=== PATIENT | female | born 1980 | race American Indian/Alaskan Native ===

== ENCOUNTER 2017-05-03 03:18 | Inpatient (IN) | payer OTHER ==
[2017-05-03 04:31] LABS: Basophils # (Auto) 0.1 K/mm3 (0.0-0.1); Basophils % (Auto) 0.6 % (0.0-1.8); Eosinophils # (Auto) 0.1 K/mm3 (0.0-0.4); Eosinophils % (Auto) 0.7 % (0.0-4.3); Hematocrit 37.8 % (30.3-42.9); Hemoglobin 13.2 gm/dl (10.1-14.3); Lymphocytes # (Auto) 3.2 K/mm3 (1.2-5.4); Lymphocytes % (Auto) 34.3 % (13.4-35.0); Mean Corpuscular HGB Conc 35 % (30-34); Mean Corpuscular Hemoglobin 31 pg (28-32); Mean Corpuscular Volume 88 fl (79-97); Monocytes # (Auto) 0.7 K/mm3 (0.0-0.8); Monocytes % (Auto) 7.1 % (0.0-7.3); Platelet Count 369 K/mm3 (140-440); Red Cell Distribution Width 13.8 % (13.2-15.2)
[2017-05-03 04:40] LABS: BUN/Creatinine Ratio 14; Blood Urea Nitrogen 11 mg/dL (7-17); Calcium 9.1 mg/dL (8.4-10.2); Hemolysis Index 17
--- NOTE | 2017-05-03 04:54 | XRay Report ---
FINAL REPORT EXAM: XR CHEST ROUTINE 2V HISTORY: Shortness of breath TECHNIQUE: PA and lateral chest radiographs PRIORS: None. FINDINGS: No mediastinal shift. Cardiac silhouette is not enlarged. No pneumothorax, effusion, or focal pulmonary opacity. No acute skeletal finding. IMPRESSION: No focal pulmonary opacity.
[2017-05-03] MEDS ORDERED: DUONEB *Not for PRN Use IH ONE (08:06)
--- NOTE | 2017-05-03 10:47 | Emergency Department Report ---
ED Shortness of Breath HPI - General Chief Complaint: Dyspnea/Respdistress Stated Complaint: YEMI Time Seen by Provider: 05/03/17 09:40 Source: patient Mode of arrival: Ambulatory Limitations: No Limitations - History of Present Illness Initial Comments: 36-year-old female past medical history obesity diabetes high cholesterol presents with complaint of episode of chest pain and upper back pain with some pleuritic shortness of breath last night. Patient states she was in bed she developed pain in her back and chest. Patient states that it bothered her to the point where she had to get out of bed and felt very short of breath. Denies fevers chills cough. States pain is moderate. Denies nausea or vomiting. Patient is speaking in full sentences awake alert and oriented 3 MD Complaint: shortness of breath -: During the night Severity: moderate Quality: aching Consistency: constant Improves With: nothing Worsens With: nothing Context: recent URI Associated Symptoms: chest pain Treatments Prior to Arrival: none, asprin - Related Data Home Oxygen Therapy: Yes Allergies Allergy/AdvReac Type Severity Reaction Status Date / Time No Known Allergies Allergy Unverified 05/03/17 03:48 ED Review of Systems ROS: Stated complaint: YEMI Other details as noted in HPI Constitutional: denies: chills, fever Eyes: denies: eye pain, eye discharge, vision change ENT: denies: ear pain, throat pain Respiratory: denies: cough, shortness of breath, wheezing Cardiovascular: chest pain. denies: palpitations Endocrine: no symptoms reported Gastrointestinal: denies: abdominal pain, nausea, diarrhea Genitourinary: denies: urgency, dysuria, discharge Musculoskeletal: denies: back pain, joint swelling, arthralgia Skin: denies: rash, lesions Neurological: denies: headache, weakness, paresthesias Psychiatric: denies: anxiety, depression Hematological/Lymphatic: denies: easy bleeding, easy bruising ED Past Medical Hx - Past Medical History Previous Medical History?: Yes Hx Diabetes: Yes Additional medical history: hyperlipidemia, PCOS - Surgical History Past Surgical History?: No - Social History Smoking Status: Current Every Day Smoker Substance Use Type: None ED Physical Exam - General Limitations: No Limitations General appearance: alert, in no apparent distress - Head Head exam: Present: atraumatic, normocephalic - Eye Eye exam: Present: normal appearance - ENT ENT exam: Present: mucous membranes moist - Neck Neck exam: Present: normal inspection - Respiratory Respiratory exam: Present: normal lung sounds bilaterally. Absent: respiratory distress - Cardiovascular Cardiovascular Exam: Present: regular rate, normal rhythm. Absent: systolic murmur, diastolic murmur, rubs, gallop - GI/Abdominal GI/Abdominal exam: Present: soft, normal bowel sounds - Extremities Exam Extremities exam: Present: normal inspection - Back Exam Back exam: Present: normal inspection - Neurological Exam Neurological exam: Present: alert, oriented X3, CN II-XII intact, normal gait - Psychiatric Psychiatric exam: Present: normal affect, normal mood - Skin Skin exam: Present: warm, dry, intact, normal color. Absent: rash ED Course Vital Signs 05/03/17 05/03/17 03:48 11:12 Temperature 98.5 F Pulse Rate 98 H 89 Respiratory 18 18 Rate Blood Pressure 132/90 Blood Pressure 101/62 [Left] O2 Sat by Pulse 99 97 Oximetry ED Medical Decision Making - Lab Data Result diagrams: 05/03/17 04:03 05/03/17 04:03 - Medical Decision Making A/P: Chest pain, substernal angina 1-case discussed with Dr. Campos, after review of clinical history and risk factors will admit patient for cardiac risk stratification and stress testing. Patient has not had stress testing in the past 2-EKG sinus 2, d-dimer negative, troponin negative 3. 3-162mg of aspirin, sublingual nitroglycerin, campus monitor 4- case discussed with hospitalist for admission Critical care attestation.: If time is entered above; I have spent that time in minutes in the direct care of this critically ill patient, excluding procedure time. ED Disposition Clinical Impression: Chest pain Qualifiers: Chest pain type: other chest pain Qualified Code(s): R07.89 - Other chest pain Disposition: 09 OP ADMIT IP TO THIS HOSP Is pt being admited?: Yes Does the pt Need Aspirin: No Condition: Stable Instructions: Chest Pain (ED) Referrals: JULIENNE KUMARI MD [Primary Care Provider] - 3-5 Days Time of Disposition: 13:41
[2017-05-03] MEDS ORDERED: BABY ASPIRIN PO ONE (13:39)
[2017-05-03] MEDS ORDERED: NACL 0.9% 1000 ML 1,000 ML IV ONE (13:43)
[2017-05-03] MEDS ORDERED: NITROSTAT SL ONE (13:43)
--- NOTE | 2017-05-03 17:20 | History and Physical Report ---
History of Present Illness Date of examination: 05/03/17 Date of admission: 05/03/17 13:42 Chief complaint: CC ; Left sided chest pain for 2 days. History of present illness: History of Present Illness Initial Comments: 36-year-old female past medical history of obesity, diabetes, HLD presents with complaint of chest pain and upper back pain with some shortness of breath last night. Patient states she was in bed and she developed pain in her back and chest. Patient states that it bothered her to the point where she had to get out of bed and felt very short of breath. Denies fevers chills cough. States pain is moderate. Denies nausea or vomiting. Patient is speaking in full sentences awake alert and oriented 3 No exacerbating or relieving factors Past Medical History Previous Medical History?: Yes Hx Diabetes: Yes Additional medical history: hyperlipidemia, PCOS Surgical History Past Surgical History?: No Social History Smoking Status: Current Every Day Smoker Substance Use Type: None Family Hx Htn Review of Systems ROS: Stated complaint: YEMI Other details as noted in HPI Constitutional: denies: chills, fever Eyes: denies: eye pain, eye discharge, vision change ENT: denies: ear pain, throat pain Respiratory: denies: cough, shortness of breath, wheezing Cardiovascular: chest pain. denies: palpitations Endocrine: no symptoms reported Gastrointestinal: denies: abdominal pain, nausea, diarrhea Genitourinary: denies: urgency, dysuria, discharge Musculoskeletal: denies: back pain, joint swelling, arthralgia Skin: denies: rash, lesions Neurological: denies: headache, weakness, paresthesias Psychiatric: denies: anxiety, depression Hematological/Lymphatic: denies: easy bleeding, easy bruising Medications and Allergies Allergies Allergy/AdvReac Type Severity Reaction Status Date / Time No Known Allergies Allergy Unverified 05/03/17 03:48 Home Medications Medication Instructions Recorded Confirmed Last Taken Type Atorvastatin 40 mg PO QPM 05/03/17 05/03/17 Unknown History Glimepiride 4 mg PO BID 05/03/17 05/03/17 Unknown History metFORMIN [Glucophage] 1,000 mg PO BID 05/03/17 05/03/17 Unknown History Exam - Constitutional Vitals: Temp Pulse Resp BP Pulse Ox 98.5 F 80 20 111/74 96 05/03/17 03:48 05/03/17 15:42 05/03/17 16:06 05/03/17 15:42 05/03/17 16:06 General appearance: Present: no acute distress, well-nourished - EENT Eyes: Present: PERRL ENT: hearing intact, clear oral mucosa - Neck Neck: Present: supple, normal ROM - Respiratory Respiratory effort: normal Respiratory: bilateral: CTA - Cardiovascular Heart rate: 76 Rhythm: regular Heart Sounds: Present: S1 & S2. Absent: rub, click - Extremities Extremities: no ischemia, pulses intact, pulses symmetrical, No edema Peripheral Pulses: within normal limits - Abdominal General gastrointestinal: Present: soft, non-tender, non-distended, normal bowel sounds Female genitourinary: Present: normal - Rectal Rectal Exam: deferred - Integumentary Integumentary: Present: clear, warm, dry - Musculoskeletal Musculoskeletal: gait normal, strength equal bilaterally - Psychiatric Psychiatric: appropriate mood/affect, intact judgment & insight - Neurologic Neurologic: CNII-XII intact, moves all extremities - Allied Health Allied health notes reviewed: nursing Results - Labs CBC & Chem 7: 05/03/17 04:03 05/03/17 04:03 Labs: Laboratory Last Values WBC 9.3 K/mm3 (4.5-11.0) 05/03/17 04:03 RBC 4.30 M/mm3 (3.65-5.03) 05/03/17 04:03 Hgb 13.2 gm/dl (10.1-14.3) 05/03/17 04:03 Hct 37.8 % (30.3-42.9) 05/03/17 04:03 MCV 88 fl (79-97) 05/03/17 04:03 MCH 31 pg (28-32) 05/03/17 04:03 MCHC 35 % (30-34) H 05/03/17 04:03 RDW 13.8 % (13.2-15.2) 05/03/17 04:03 Plt Count 369 K/mm3 (140-440) 05/03/17 04:03 Lymph % (Auto) 34.3 % (13.4-35.0) 05/03/17 04:03 [place] % (Auto) 7.1 % (0.0-7.3) 05/03/17 04:03 Eos % (Auto) 0.7 % (0.0-4.3) 05/03/17 04:03 Baso % (Auto) 0.6 % (0.0-1.8) 05/03/17 04:03 Lymph # 3.2 K/mm3 (1.2-5.4) 05/03/17 04:03 [place] # 0.7 K/mm3 (0.0-0.8) 05/03/17 04:03 Eos # 0.1 K/mm3 (0.0-0.4) 05/03/17 04:03 Baso # 0.1 K/mm3 (0.0-0.1) 05/03/17 04:03 Seg Neutrophils % 57.3 % (40.0-70.0) 05/03/17 04:03 Seg Neutrophils # 5.3 K/mm3 (1.8-7.7) 05/03/17 04:03 D-Dimer 154.25 ng/mlDDU (0-234) 05/03/17 08:30 Sodium 141 mmol/L (137-145) 05/03/17 04:03 Potassium 4.3 mmol/L (3.6-5.0) 05/03/17 04:03 Chloride 101.2 mmol/L (98-107) 05/03/17 04:03 Carbon Dioxide 25 mmol/L (22-30) 05/03/17 04:03 Anion Gap 19 mmol/L 05/03/17 04:03 BUN 11 mg/dL (7-17) 05/03/17 04:03 Creatinine 0.8 mg/dL (0.7-1.2) 05/03/17 04:03 Estimated GFR > 60 ml/min 05/03/17 04:03 BUN/Creatinine Ratio 14 % 05/03/17 04:03 Glucose 147 mg/dL (65-100) H 05/03/17 04:03 Calcium 9.1 mg/dL (8.4-10.2) 05/03/17 04:03 Troponin T < 0.010 ng/mL (0.00-0.029) 05/03/17 11:06 - Imaging and Cardiology EKG: report reviewed (sinus rhythm 80/min Non specific T abnormalities ant leads ) Chest x-ray: report reviewed Assessment and Plan Advance Directives: Yes (Full code) VTE prophylaxis?: Chemical Plan of care discussed with patient/family: Yes - Patient Problems (1) Chest pain Current Visit: Yes Status: Acute Qualifiers: Chest pain type: unspecified Qualified Code(s): R07.9 - Chest pain, unspecified Plan to address problem: Serial cardiac enzymes and lexiscan in AM.Diff diagnosis of costochondritis and Gerd to be considered.No chest wall tenderness. (2) HLD (hyperlipidemia) Current Visit: Yes Status: Chronic Qualifiers: Hyperlipidemia type: mixed hyperlipidemia Qualified Code(s): E78.2 - Mixed hyperlipidemia Plan to address problem: Cont statins (3) T2DM (type 2 diabetes mellitus) Current Visit: Yes Status: Chronic Qualifiers: Diabetes mellitus complication status: without complication Diabetes mellitus manager long term care insulin use: without [facility] use Qualified Code(s): E11.9 - Type 2 diabetes mellitus without complications Plan to address problem: Cont Glimepride and Metformin Check A1c. Moderate dose s/s coverage (4) PCOS (polycystic ovarian syndrome) Current Visit: Yes Status: Chronic Plan to address problem: Cont Metformin (5) Malnutrition compromising bodily function Current Visit: Yes Status: Chronic Plan to address problem: Sec to Morbid obeesity-counselled (6) DVT prophylaxis Current Visit: Yes Status: Acute Plan to address problem: on Lovenox
[2017-05-03] MEDS ORDERED: TYLENOL PO PRN (17:50)
[2017-05-03] MEDS ORDERED: MORPHINE IV PRN ×2 (17:50)
[2017-05-03] MEDS ORDERED: PERCOCET 5/325 PO PRN (17:50)
[2017-05-03] MEDS ORDERED: AMBIEN PO PRN (17:50)
[2017-05-03] MEDS ORDERED: MILK OF MAGNESIA PO PRN (17:50)
[2017-05-03] MEDS ORDERED: DULCOLAX PR PRN (17:50)
[2017-05-03] MEDS ORDERED: ZOFRAN IV PRN (17:50)
[2017-05-03] MEDS ORDERED: NON-FORMULARY (Atorvastatin 40 MG) PO SCH (18:00)
[2017-05-03 20:08] LABS: Creatine Kinase MB < 1.0 ng/mL (0.0-4.0)
[2017-05-03] MEDS: GLUCOPHAGE PO SCH (21:51)
[2017-05-03] MEDS: AMARYL PO SCH (21:54)
[2017-05-03] MEDS: NOVOLOG SUB-Q SCH (21:54)
[2017-05-03] MEDS: PEPCID IV SCH (21:57)
[2017-05-03] MEDS ORDERED: GLIMEPIRIDE 4 MG PO SCH (22:00)
[2017-05-04 01:41] LABS: Creatine Kinase MB < 1.0 ng/mL (0.0-4.0)
[2017-05-04 05:56] LABS: Basophils % (Auto) 0.2 % (0.0-1.8); Eosinophils # (Auto) 0.1 K/mm3 (0.0-0.4); Eosinophils % (Auto) 1.4 % (0.0-4.3); Hematocrit 36.4 % (30.3-42.9); Hemoglobin 12.3 gm/dl (10.1-14.3); Lymphocytes # (Auto) 2.8 K/mm3 (1.2-5.4); Lymphocytes % (Auto) 43.4 % (13.4-35.0); Mean Corpuscular HGB Conc 34 % (30-34); Mean Corpuscular Hemoglobin 30 pg (28-32); Mean Corpuscular Volume 88 fl (79-97); Monocytes # (Auto) 0.6 K/mm3 (0.0-0.8); Monocytes % (Auto) 9.1 % (0.0-7.3); Platelet Count 331 K/mm3 (140-440); Red Blood Count 4.11 M/mm3 (3.65-5.03); Red Cell Distribution Width 13.7 % (13.2-15.2)
[2017-05-04 06:19] LABS: Alanine Aminotransferase 16 units/L (7-56); Albumin 3.6 g/dL (3.9-5); BUN/Creatinine Ratio 13; Blood Urea Nitrogen 8 mg/dL (7-17); Calcium 8.7 mg/dL (8.4-10.2); Hemolysis Index 32
[2017-05-04 06:32] LABS: Creatine Kinase MB < 1.0 ng/mL (0.0-4.0)
[2017-05-04] MEDS: NOVOLOG SUB-Q SCH ×2 (08:00→12:00)
[2017-05-04] MEDS: GLUCOPHAGE PO SCH (08:00)
[2017-05-04] MEDS: AMARYL PO SCH (08:04)
[2017-05-04] MEDS: PEPCID IV SCH (09:51)
--- NOTE | 2017-05-04 14:02 | Discharge Summary ---
Providers - Providers Date of Admission: 05/03/17 13:42 Date of discharge: 05/04/17 Attending physician: FRANK ALTMAN Primary care physician: JULIENNE KUMARI Hospitalization Reason for admission: cp Condition: Stable Hospital course: 36-year-old female past medical history of obesity, diabetes, HLD presents with complaint of chest pain and upper back pain with some shortness of breath last night. Patient states she was in bed and she developed pain in her back and chest. Patient was noted to have a normal EKG and cardiac isoenzymes were negative. Patient also had a d-dimer that was negative. Patient underwent a stress thallium that was found to be . Patient is felt to have received maximal hospital benefit. Dedicated discharge time 32 minutes. Disposition: DC-30 STILL A PATIENT Core Measure Documentation - Palliative Care Palliative Care/ Comfort Measures: Not Applicable - Core Measures Any of the following diagnoses?: none Exam - Constitutional Vitals: Temp Pulse Resp BP Pulse Ox 97.9 F 70 16 131/87 99 05/04/17 07:46 05/04/17 07:46 05/04/17 07:46 05/04/17 07:46 05/04/17 07:46 General appearance: Present: no acute distress, obese - EENT Eyes: Present: PERRL ENT: hearing intact, clear oral mucosa - Neck Neck: Present: supple, normal ROM - Respiratory Respiratory effort: normal Respiratory: bilateral: CTA - Cardiovascular Heart Sounds: Present: S1 & S2. Absent: rub, click - Extremities Extremities: pulses symmetrical, No edema Peripheral Pulses: within normal limits - Abdominal General gastrointestinal: Present: soft, non-tender, non-distended, normal bowel sounds Female genitourinary: Present: normal - Integumentary Integumentary: Present: clear, warm, dry - Musculoskeletal Musculoskeletal: gait normal, strength equal bilaterally - Psychiatric Psychiatric: appropriate mood/affect, intact judgment & insight - Neurologic Neurologic: CNII-XII intact, moves all extremities Plan Activity: no restrictions Weight Bearing Status: Full Weight Bearing Diet: low fat, low cholesterol Follow up with: JULIENNE KUMARI MD [Primary Care Provider] - 3-5 Days
[2017-05-04 15:58] VITALS: BP 110/76
--- NOTE | 2017-05-06 14:41 | Treadmill Report ---
REFERRING PHYSICIAN: Dr. Aguayo. PROCEDURE IN DETAIL: The patient was brought to the stress lab in a postabsorptive state, given 10 mCi of technetium 99m at rest. The patient underwent rest imaging. The patient underwent Lexiscan stress test. At peak stress, the patient was given 26 mCi of technetium 99m shortly after the stress imaging. Raw imaging reveals mild GI artifact. No significant motion artifact. SPECT imaging examined carefully in the horizontal long axis, vertical long axis, short axis views. This is technically somewhat difficult study, but grossly no evidence of a significant fixed or reversible perfusion defects suggestive of prior infarction or ischemia. Gated wall motion reveals normal systolic thickening, calculated ejection fraction of 60%. No TID. CONCLUSIONS: Technically difficult study, but grossly normal without evidence of significant degree of ischemia or prior infarction. Normal left ventricular systolic performance without evidence of transient ischemic dilatation or stress-induced segmental wall motion abnormalities. JOB# [id number] SBJuana/PANCHO
--- NOTE | 2017-05-12 09:46 | Query- Chest Pain ---
Terese Kelly____Lee Date:____05/12/17 Telephone Service Adviser/CDS:____Johnsa / Danilo Phone#:____[phone] Exercise your independent professional judgment when responding to query. Questions asked do not imply a particular answer is desired or expected. We greatly appreciate your clarification on this issue. Clinical Documentation States: 36 year old female was admitted on 05/03/17 The discharge summary (Dr. Howard) states " 36-year-old female past medical history of obesity, diabetes, HLD presents with complaint of chest pain and upper back pain with some shortness of breath Patient was noted to have a normal EKG and cardiac isoenzymes were negative. Patient also had a d-dimer that was negative." Please document the etiology of Chest Pain: [ ] Myocardial Infarction [ ] Pneumonia [ ] Mediastinitis [ ] Costochondritis [ ] Pulmonary Embolism [ ] Coronary Artery Disease [ x] GERD [ ] Other: [ ] Comment/Explanation: Present on Admission: [ x] Yes (Y) [ ] Clinically undeterminable (W) [ ] No(N) Please document response in your Progress Notes and/or Discharge Summary and indicate if the condition was present on admission. MTDD
== END 2017-05-04 17:30 | disposition home or self-care (01) | DRG 392 ==
LOC: ED 03:18 → 4A 13:42
PROVIDERS: ADMIT Internal Medicine; ATTEND Hospitalist
DX: K21.9 Gastro-esophageal reflux disease without esophagitis (principal); E46 Unspecified protein-calorie malnutrition; Z68.43 Body mass index [BMI] 50.0-59.9, adult; E11.8 Type 2 diabetes mellitus with unspecified complications; E28.2 Polycystic ovarian syndrome; F17.200 Nicotine dependence, unspecified, uncomplicated; E78.5 Hyperlipidemia, unspecified; E66.01 Morbid (severe) obesity due to excess calories; Z79.899 Other long term (current) drug therapy
CPT/HCPCS: 36415; 71020; 78452; 80048; 80053; 82550; 82553; 82962; 83036; 84484; 84703; 85025; 85379; 93005; 93010; 93017; 94640; 96360; A9270-GY; A9502; J7030

== ENCOUNTER 2018-02-26 14:59 | Emergency (ER) | payer OTHER ==
[2018-02-26] MEDS ORDERED: MOTRIN PO ONE (17:22)
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
--- NOTE | 2018-02-26 19:11 | XRay Report ---
FINAL REPORT EXAM: XR SPINE LUMBOSACRAL 2-3V HISTORY: low back pain TECHNIQUE: 3 views of the lumbar spine PRIORS: None. FINDINGS: The lumbar vertebral bodies are normal in height. Vertebral alignment is normal. There is very mild endplate osteophyte formation at T12-L1, L1-2, L2-3 and L4-5. Otherwise, the disc spaces appear well-preserved. The soft tissues are unremarkable. IMPRESSION: Early multilevel degenerative disc disease
[2018-02-26 20:29] VITALS: BP 129/80
== END 2018-02-26 20:29 | disposition home or self-care (01) ==
LOC: ED 14:59
DX: S39.012A Strain of muscle, fascia and tendon of lower back, initial encounter (principal); E11.9 Type 2 diabetes mellitus without complications; E78.5 Hyperlipidemia, unspecified; E28.2 Polycystic ovarian syndrome; V89.2XXA Person injured in unspecified motor-vehicle accident, traffic, initial encounter; Y93.89 Activity, other specified; Y92.89 Other specified places as the place of occurrence of the external cause; Y99.8 Other external cause status
CPT/HCPCS: 72100; 99283